=== PATIENT | female | born 1985 ===

== ENCOUNTER 2017-12-11 13:29 | Inpatient (IN) | payer OTHER ==
[~2017-12-11] VITALS: Ht 165.1 cm; Wt 2.3 kg
[2017-12-11] MEDS ORDERED: ATABEX EC CAPL1 EACH PO (13:51)
== END 2017-12-15 11:25 | DRG 766 ==
LOC: OB/GYN 13:29 → LDR 13:29 → OB/GYN 12-12 01:20
PROC: 4A1HXCZ Monitoring of Products of Conception, Cardiac Rate, External Approach (ICD-10-PCS; 2017-12-11)
PROC: 10D00Z1 Extraction of Products of Conception, Low, Open Approach (ICD-10-PCS; principal; 2017-12-12)
PROC: 0UB70ZZ Excision of Bilateral Fallopian Tubes, Open Approach (ICD-10-PCS; 2017-12-12)
PROC: 4A033R1 Measurement of Arterial Saturation, Peripheral, Percutaneous Approach (ICD-10-PCS; 2017-12-12)
DX: O62.0 Primary inadequate contractions (principal); Z37.0 Single live birth; Z30.2 Encounter for sterilization; Z3A.38 38 weeks gestation of pregnancy

== ENCOUNTER 2017-12-20 22:03 | Emergency (ER) | payer OTHER ==
[~2017-12-20] VITALS: Ht 167.6 cm; Wt 75.3 kg
[~2017-12-20 22:03] MED LIST: ATABEX EC CAPL1 EACH PO
== END 2017-12-20 23:22 | disposition home or self-care (01) ==
LOC: ER 22:03
DX: O90.89 Other complications of the puerperium, not elsewhere classified (principal); N99.821 Postprocedural hemorrhage of a genitourinary system organ or structure following other procedure

== ENCOUNTER → 2021-12-20 | Outpatient (CLI) | payer OTHER | END | disposition home or self-care (01) | LOC: SONOGRAMA 13:42 | PROVIDERS: ATTEND Pathology Anatomic Pathology & Clinical Pathology | DX: E04.1 Nontoxic single thyroid nodule (principal) ==